=== PATIENT | male | born 1970 | race African-American/Black ===

== ENCOUNTER 2018-03-03 12:25 | Outpatient (CLI) | payer OTHER ==
--- NOTE | 2018-03-03 13:32 | Diagnostic Imaging Report ---
Indication: Dyspnea Comparison: None 2 views of the chest obtained. Findings: Cardiomediastinal silhouette and pulmonary vascularity are within normal limits for age. The diaphragmatic contour is smooth and costophrenic angles are sharp. No pleural effusions are identified. The bones are unremarkable. Impression: No acute disease
== END 2018-03-03 14:25 | disposition home or self-care (01) ==
LOC: RAD 12:25
DX: Z01.818 Encounter for other preprocedural examination (principal); Z01.812 Encounter for preprocedural laboratory examination; R05 Cough; R06.00 Dyspnea, unspecified
CPT/HCPCS: 71046